=== PATIENT | female | born 1970 | race Caucasian/White ===

== ENCOUNTER 2023-05-02 07:48 | Emergency (ER) | payer MEDICAID ==
[~2023-05-02] VITALS: Ht 167.6 cm; Wt 97.5 kg
[2023-05-02 08:06] VITALS: TEMP 97.1
[2023-05-02 09:30] LABS: ALANINE AMINOTRANSFERASE 70 U/L (12-78); ALBUMIN 3.8 G/DL (3.4-5.0); ALBUMIN/GLOBULIN RATIO 1.1 (1.1-1.5); ALKALINE PHOSPHATASE 132 IU/L (46-116); ANION GAP 11 (8-16); ASPARTATE AMINO TRANSFERASE 66 U/L (10-37); BILIRUBIN,TOTAL 0.5 MG/DL (0.1-1.0); BLOOD UREA NITROGEN 11 MG/DL (7-18); BUN/CREATININE RATIO 16.7 (10.0-20.0); CHLORIDE 106 MMOL/L (99-107); CREATININE 0.66 MG/DL (0.40-0.90); GLUCOSE 111 MG/DL (70-104); SODIUM 142 MMOL/L (135-145); TOTAL CARBON DIOXIDE 25.5 MMOL/L (24-32); TOTAL PROTEIN 7.4 G/DL (6.4-8.2); eCRCL 92 ML/MIN; eGFR > 90 ML/MIN
[2023-05-02 09:38] LABS: BASOPHILS % (AUTO) 0.4 % (0-1); EOSINOPHILS # (AUTO) 0.3 X10'3 (0-0.9); EOSINOPHILS % (AUTO) 4.9 % (0-6); HEMATOCRIT 40.9 % (35.0-45.0); HEMOGLOBIN 13.7 g/dl (12.0-16.0); LYMPHOCYTES # (AUTO) 1.9 X10'3 (1.1-4.8); LYMPHOCYTES % (AUTO) 27.3 % (21-51); MEAN CORPUSCULAR HEMOGLOBIN 32.5 PG (27.0-31.0); MEAN CORPUSCULAR HGB CONC 33.6 g/dL (33.0-36.5); MEAN CORPUSCULAR VOLUME 96.7 FL (78-98); MEAN PLATELET VOLUME 8.1 FL (7.4-10.4); MONOCYTES # (AUTO) 0.4 X10'3 (0-0.9); MONOCYTES % (AUTO) 5.9 % (2-12); NEUTROPHILS # (AUTO) 4.4 X10'3 (1.8-7.7); NEUTROPHILS % (AUTO) 61.5 % (42-75); PLATELET COUNT 265 X10'3 (140-440); RED BLOOD COUNT 4.23 X10'6 (4.20-5.60); RED CELL DISTRIBUTION WIDTH 17.4 % (11.5-14.5); WHITE BLOOD COUNT 7.1 X10'3 (4.5-11.0)
[2023-05-02 10:37] VITALS: BP 151/97; PULSE 99; RESP 16; O2SAT 99
[2023-05-02] MEDS ORDERED: predniSONE 20 mg tablet PO ONE (10:50)
[2023-05-02] MEDS ORDERED: BENZ-38 PO (10:51)
[2023-05-02] MEDS ORDERED: METH4TAB81 PO (10:51)
== END 2023-05-02 11:35 | disposition home or self-care (01) ==
LOC: ER 07:49
DX: J40 Bronchitis, not specified as acute or chronic (principal); J04.0 Acute laryngitis
CPT/HCPCS: 36415; 71045; 80053; 85025; 99284; J7512

== ENCOUNTER 2023-07-19 09:48 | Emergency (ER) | payer MEDICAID ==
[~2023-07-19] VITALS: Ht 167.6 cm; Wt 95.9 kg
[~2023-07-19 09:48] MED LIST: METH4TAB81 PO
[2023-07-19] MEDS ORDERED: DIPH25CA83 PO (11:11)
[2023-07-19] MEDS ORDERED: FIOCOC PO (11:11)
[2023-07-19] MEDS ORDERED: METO5TAB98 PO (11:11)
[2023-07-19] MEDS: dexamethasone sod phosphate 10mg/ml inj IM STA (11:19)
[2023-07-19] MEDS: ketorolac trometh inj. 60 MG/2 ML VIAL IM ONE (11:20)
[2023-07-19 11:29] VITALS: BP 157/108; PULSE 116; RESP 17; TEMP 98.3; O2SAT 97
== END 2023-07-19 11:32 | disposition home or self-care (01) ==
LOC: ER 09:48
DX: G43.909 Migraine, unspecified, not intractable, without status migrainosus (principal); Z88.0 Allergy status to penicillin; Z79.899 Other long term (current) drug therapy
CPT/HCPCS: 96372; 99284; J1100; J1885

== ENCOUNTER 2023-08-01 19:37 | Emergency (ER) | payer MEDICAID ==
[~2023-08-01] VITALS: Ht 165.1 cm; Wt 90.9 kg
[~2023-08-01 19:37] MED LIST changes: +DIPH25CA83 PO; +FIOCOC PO; +METO5TAB98 PO
[2023-08-01 19:39] VITALS: BP 154/104; PULSE 122; TEMP 97.7; O2SAT 97
[2023-08-01] MEDS ORDERED: HYDR-3965 PO (20:39)
[2023-08-01] MEDS ORDERED: BENZ9GEL TOP (20:39)
[2023-08-01 20:53] VITALS: RESP 18
[2023-08-01] MEDS: HYDROcodone/acetaminophen 5mg/325mg tablet PO ONE (20:53)
== END 2023-08-01 20:56 | disposition home or self-care (01) ==
LOC: ER 19:38
DX: S02.5XXA Fracture of tooth (traumatic), initial encounter for closed fracture (principal); Z88.0 Allergy status to penicillin; Z79.899 Other long term (current) drug therapy; X58.XXXA Exposure to other specified factors, initial encounter; Y93.89 Activity, other specified; Y92.89 Other specified places as the place of occurrence of the external cause; Y99.8 Other external cause status
CPT/HCPCS: 99283

== ENCOUNTER 2023-11-09 05:10 | Inpatient (IN) | payer MEDICAID ==
[~2023-11-09] VITALS: Ht 167.6 cm; Wt 90.9 kg
[~2023-11-09 05:10] MED LIST changes: +BENZ9GEL TOP; -METO5TAB98 PO
[2023-11-09] MEDS: diphenhydrAMINE 50 mg/ml inj IV ONE (05:37)
[2023-11-09] MEDS: magnesium sulf-water 2g/50mL 50 ML IV ONE (05:37)
[2023-11-09] MEDS: normal saline 1000ml 1,000 ML IV ONE (05:37)
[2023-11-09 06:15] LABS: BASOPHILS # (AUTO) 0.1 X10'3 (0-0.2); BASOPHILS % (AUTO) 0.9 % (0-1); EOSINOPHILS # (AUTO) 0.3 X10'3 (0-0.9); EOSINOPHILS % (AUTO) 5.6 % (0-6); HEMATOCRIT 38.6 % (35.0-45.0); HEMOGLOBIN 12.9 g/dl (12.0-16.0); LYMPHOCYTES # (AUTO) 1.9 X10'3 (1.1-4.8); LYMPHOCYTES % (AUTO) 31.9 % (21-51); MEAN CORPUSCULAR HEMOGLOBIN 33.5 PG (27.0-31.0); MEAN CORPUSCULAR HGB CONC 33.5 g/dL (33.0-36.5); MEAN PLATELET VOLUME 7.6 FL (7.4-10.4); MONOCYTES # (AUTO) 0.4 X10'3 (0-0.9); MONOCYTES % (AUTO) 6.3 % (2-12); NEUTROPHILS # (AUTO) 3.2 X10'3 (1.8-7.7); NEUTROPHILS % (AUTO) 55.3 % (42-75); PLATELET COUNT 240 X10'3 (140-440); RED BLOOD COUNT 3.86 X10'6 (4.20-5.60); RED CELL DISTRIBUTION WIDTH 13.7 % (11.5-14.5); WHITE BLOOD COUNT 5.9 X10'3 (4.5-11.0)
[2023-11-09 06:16] LABS: BILIRUBIN,URINE NEGATIVE (Neg); CLARITY,URINE SLIGHTLY CLOUDY (Clear); COLOR,URINE YELLOW (Yellow); GLUCOSE, URINE NEGATIVE (Neg); KETONES,URINE NEGATIVE (Neg); LEUKOCYTE ESTERASE ,URINE NEGATIVE (Neg); NITRITES, URINE NEGATIVE (Neg); OCCULT BLOOD,URINE NEGATIVE (Neg); PH,URINE 6.5 (4.8-8.0); PROTEIN,URINE NEGATIVE (Neg); UROBILINOGEN,URINE 0.2 E.U/dL (0.2-1.0)
[2023-11-09 06:17] LABS: URINE HCG NEGATIVE (NEG)
[2023-11-09 06:21] LABS: UA COLLECTION TYPE URINAL
[2023-11-09 06:22] LABS: AMORPHOUS URATES 2+; BACTERIA,URINE FEW /HPF (Neg); MUCUS STRANDS FEW /LPF (Neg); RBC,URINE NONE SEEN /HPF (0-2); SQUAMOUS EPITHELIAL CELL,UR MANY /LPF (FEW); WBC,URINE 0-4 /HPF (0-4)
[2023-11-09 06:26] LABS: ALANINE AMINOTRANSFERASE 61 U/L (12-78); ALBUMIN 2.9 G/DL (3.4-5.0); ALBUMIN/GLOBULIN RATIO 0.8 (1.1-1.5); ALKALINE PHOSPHATASE 102 IU/L (46-116); ANION GAP 13 (8-16); ASPARTATE AMINO TRANSFERASE 62 U/L (10-37); BILIRUBIN,TOTAL 0.3 MG/DL (0.1-1.0); BLOOD UREA NITROGEN 7 MG/DL (7-18); BUN/CREATININE RATIO 9.1 (10.0-20.0); CHLORIDE 108 MMOL/L (99-107); CREATININE 0.77 MG/DL (0.40-0.90); GLUCOSE 116 MG/DL (70-104); SODIUM 144 MMOL/L (135-145); TOTAL CARBON DIOXIDE 23.5 MMOL/L (24-32); TOTAL PROTEIN 6.7 G/DL (6.4-8.2); eCRCL 79 ML/MIN; eGFR 78 ML/MIN
[2023-11-09 06:36] LABS: ETHANOL < 10 MG/DL (<10); FREE T4 (FREE THYROXINE) 0.81 NG/DL (0.73-1.40); MAGNESIUM 1.7 MG/DL (1.5-2.4); THYROID STIMULATING HORMONE 9.51 ulU/ml (0.34-4.50)
[2023-11-09 06:46] LABS: POTASSIUM 3.6 MMOL/L (3.5-5.1)
[2023-11-09 06:46] LABS: URINE AMPHETAMINE SCREEN NEGATIVE (Neg); URINE BARBITUATE SCREEN NEGATIVE (Neg); URINE BENZODIAZEPINES SCREEN NEGATIVE (Neg); URINE CANNABINOID SCREEN NEGATIVE (Neg); URINE COCAINE SCREEN NEGATIVE (Neg); URINE METHADONE SCREEN NEGATIVE (Neg); URINE OPIATE SCREEN NEGATIVE (Neg); URINE PHENCYCLIDINE SCREEN NEGATIVE (Neg)
[2023-11-09] MEDS: LORazepam 2 mg/ml vial IV ONE (09:06)
[2023-11-09] MEDS: metoclopramide 10mg tablet PO ONE (12:01)
[2023-11-09] MEDS: mag hydrox/Alum hydrox/simeth 30ml oral suspension PO ONE (12:01)
[2023-11-09] MEDS: famotidine 20mg tablet PO ONE (12:01)
[2023-11-09] MEDS: diphenhydrAMINE 25mg capsule PO ONE (12:01)
[2023-11-09] MEDS ORDERED: magnesium sulf-water 2g/50mL 50 ML IV PRN (13:10)
[2023-11-09] MEDS ORDERED: ondansetron 4mg rapidly disintigrating tab PO PRN (13:10)
[2023-11-09] MEDS ORDERED: magnesium sulf-water 4G/100mL 100 ML IV PRN (13:10)
[2023-11-09] MEDS ORDERED: acetaminophen 325mg tablet PO PRN (13:10)
[2023-11-09] MEDS ORDERED: LORazepam 1 MG tablet PO PRN (13:10)
[2023-11-09] MEDS ORDERED: magnesium hydroxide 30ml (MOM) UD suspension PO PRN (13:10)
[2023-11-09] MEDS ORDERED: potassium Cl 20 mEq SR tablet PO PRN ×2 (13:10)
[2023-11-09] MEDS ORDERED: potassium Cl 40MEQ/1/2NS 520ml 520 ML IV PRN (13:10)
[2023-11-09] MEDS ORDERED: mag hydrox/Alum hydrox/simeth 30ml oral suspension PO PRN (13:10)
[2023-11-09] MEDS ORDERED: magnesium Cl slow-release 64mg tablet PO PRN (13:10)
[2023-11-09] MEDS ORDERED: CYCL-1 PO (13:58)
[2023-11-09] MEDS ORDERED: CLIN300C71 PO (13:58)
[2023-11-09] MEDS ORDERED: DULO60CA65 PO (13:58)
[2023-11-09] MEDS ORDERED: AMIT50TA15 PO (13:58)
[2023-11-09] MEDS ORDERED: IBUP-1985 PO (13:58)
[2023-11-09] MEDS ORDERED: ERGO500093 PO (13:58)
[2023-11-09] MEDS ORDERED: SEMA0.258 SQ (13:58)
[2023-11-09] MEDS: LORazepam 1 MG tablet PO ONE (14:05)
[2023-11-09 17:01] VITALS: BP 159/100; PULSE 110; RESP 20; TEMP 97.3; O2SAT 96
[2023-11-09] MEDS: normal saline 1000ml 1,000 ML IV SCH (17:34)
[2023-11-09 18:00] VITALS: BP 150/89; PULSE 110; RESP 20; TEMP 97.6; O2SAT 96
[2023-11-09] MEDS ORDERED: glucagon, human recombinant 1mg kit SUBCUT PRN (18:05)
[2023-11-09] MEDS ORDERED: dextrose 50%-water 50ml dispensing syringe IV PRN ×2 (18:05)
[2023-11-09] MEDS ORDERED: LORazepam 2 mg/ml vial IV PRN ×2 (18:05→18:20)
[2023-11-09] MEDS ORDERED: DEXTROSE 15 GM of carb/4 tabs (each vial/BOTTLE has 4 tablets) PO PRN ×2 (18:05)
[2023-11-09 18:48] LABS: HEMOGLOBIN A1C 6.1 % (4.5-6.2)
[2023-11-09] MEDS: K and/or MAG REPLACEMENT MC SCH (19:05)
[2023-11-09 20:00] VITALS: RESP 16; O2SAT 98
[2023-11-09] MEDS: docusate sod 100mg capsule PO SCH (20:43)
[2023-11-09] MEDS: acetaminophen 325mg tablet PO PRN (20:43)
[2023-11-09] MEDS: LORazepam 1 MG tablet PO PRN (20:43)
[2023-11-09] MEDS: heparin, porcine 5000 units/ml vial SQ SCH (20:44)
[2023-11-09] MEDS: INSULIN LISPRO 100 UNIT/ML INSULN.PEN MULTI-DOSE SQ SCH (20:54)
[2023-11-09 22:31] VITALS: BP 164/99; PULSE 100; RESP 16; TEMP 98.1; O2SAT 95
[2023-11-10] VITALS (8 sets, daily range): BP systolic 149–166; BP diastolic 100–117; PULSE 101–117; RESP 14–22; TEMP 97.7–98.9; O2SAT 93–100
[2023-11-10 04:24] LABS: BASOPHILS % (AUTO) 0.7 % (0-1); EOSINOPHILS # (AUTO) 0.3 X10'3 (0-0.9); EOSINOPHILS % (AUTO) 5.3 % (0-6); HEMATOCRIT 36.5 % (35.0-45.0); HEMOGLOBIN 12.2 g/dl (12.0-16.0); MEAN CORPUSCULAR HEMOGLOBIN 33.5 PG (27.0-31.0); MEAN CORPUSCULAR HGB CONC 33.3 g/dL (33.0-36.5); MEAN CORPUSCULAR VOLUME 100.6 FL (78-98); MEAN PLATELET VOLUME 7.8 FL (7.4-10.4); MONOCYTES # (AUTO) 0.4 X10'3 (0-0.9); MONOCYTES % (AUTO) 6.9 % (2-12); NEUTROPHILS # (AUTO) 3.7 X10'3 (1.8-7.7); NEUTROPHILS % (AUTO) 57.1 % (42-75); PLATELET COUNT 193 X10'3 (140-440); RED BLOOD COUNT 3.63 X10'6 (4.20-5.60); WHITE BLOOD COUNT 6.5 X10'3 (4.5-11.0)
[2023-11-10] MEDS: thiamine 100mg tablet PO SCH (08:02)
[2023-11-10] MEDS: folic acid 1mg tablet PO SCH (08:02)
[2023-11-10] MEDS: losartan 50mg tablet PO SCH (08:02)
[2023-11-10] MEDS: levoTHYROXINE 25mcg tablet PO SCH (08:02)
[2023-11-10] MEDS: cloNIDine 0.1 mg tablet PO SCH (12:28)
[2023-11-10] MEDS: acetaminophen 325mg tablet PO PRN (14:49)
[2023-11-11] MEDS: Melatonin 3mg tablet PO SCH (01:10)
[2023-11-11 06:00] VITALS: BP 157/101; PULSE 102; RESP 14; TEMP 97.7; O2SAT 97
[2023-11-11 06:35] LABS: BASOPHILS % (AUTO) 0.4 % (0-1); EOSINOPHILS # (AUTO) 0.3 X10'3 (0-0.9); EOSINOPHILS % (AUTO) 5.1 % (0-6); HEMATOCRIT 39.4 % (35.0-45.0); HEMOGLOBIN 13.4 g/dl (12.0-16.0); LYMPHOCYTES # (AUTO) 2.1 X10'3 (1.1-4.8); LYMPHOCYTES % (AUTO) 30.8 % (21-51); MEAN CORPUSCULAR HEMOGLOBIN 34.2 PG (27.0-31.0); MEAN CORPUSCULAR HGB CONC 34.1 g/dL (33.0-36.5); MEAN CORPUSCULAR VOLUME 100.3 FL (78-98); MEAN PLATELET VOLUME 8.9 FL (7.4-10.4); MONOCYTES # (AUTO) 0.4 X10'3 (0-0.9); MONOCYTES % (AUTO) 5.4 % (2-12); NEUTROPHILS # (AUTO) 3.9 X10'3 (1.8-7.7); NEUTROPHILS % (AUTO) 58.3 % (42-75); PLATELET COUNT 188 X10'3 (140-440); RED BLOOD COUNT 3.93 X10'6 (4.20-5.60); RED CELL DISTRIBUTION WIDTH 13.9 % (11.5-14.5); WHITE BLOOD COUNT 6.8 X10'3 (4.5-11.0)
[2023-11-11] MEDS: pantoprazole 40mg Tablet.DR PO SCH (07:23)
[2023-11-11 08:04] VITALS: RESP 14; O2SAT 97
[2023-11-11 10:00] VITALS: BP 152/97; PULSE 91; RESP 20; TEMP 97; O2SAT 95
[2023-11-11] MEDS ORDERED: diazepam inj 5 MG/ML inj. IV PRN (10:45)
[2023-11-11] MEDS: nicotine 7mg patch - 24hr TD SCH (15:04)
[2023-11-11 18:00] VITALS: BP 154/105; PULSE 97; RESP 16; TEMP 97.5; O2SAT 94
[2023-11-11 20:00] VITALS: RESP 16; O2SAT 94
[2023-11-11] MEDS ORDERED: Melatonin 3mg tablet PO SCH (21:00)
[2023-11-11 22:00] VITALS: BP 151/101; PULSE 95; RESP 18; TEMP 98.2; O2SAT 94
[2023-11-12 05:41] LABS: BASOPHILS % (AUTO) 0.4 % (0-1); EOSINOPHILS # (AUTO) 0.4 X10'3 (0-0.9); EOSINOPHILS % (AUTO) 5.8 % (0-6); HEMATOCRIT 37.6 % (35.0-45.0); HEMOGLOBIN 12.4 g/dl (12.0-16.0); LYMPHOCYTES # (AUTO) 1.6 X10'3 (1.1-4.8); LYMPHOCYTES % (AUTO) 23.2 % (21-51); MEAN CORPUSCULAR HEMOGLOBIN 33.1 PG (27.0-31.0); MEAN CORPUSCULAR VOLUME 100.3 FL (78-98); MEAN PLATELET VOLUME 8.5 FL (7.4-10.4); MONOCYTES # (AUTO) 0.4 X10'3 (0-0.9); MONOCYTES % (AUTO) 5.3 % (2-12); NEUTROPHILS # (AUTO) 4.6 X10'3 (1.8-7.7); NEUTROPHILS % (AUTO) 65.3 % (42-75); PLATELET COUNT 186 X10'3 (140-440); RED BLOOD COUNT 3.75 X10'6 (4.20-5.60); WHITE BLOOD COUNT 7.1 X10'3 (4.5-11.0)
[2023-11-12 06:00] VITALS: BP 160/100; PULSE 94; RESP 22; TEMP 98; O2SAT 92
[2023-11-12] MEDS ORDERED: nicotine 7mg patch - 24hr TD SCH (08:00)
[2023-11-12 10:00] VITALS: BP 162/102; PULSE 95; RESP 21; TEMP 97.6; O2SAT 91
[2023-11-12] MEDS ORDERED: LORA-269 PO (11:56)
[2023-11-12] MEDS ORDERED: LEVO25TA7 PO (13:04)
== END 2023-11-12 14:59 | disposition home or self-care (01) | DRG 58 ==
LOC: ER 05:11 → ED HOLD 13:24 → SUR 3N 17:00
PROVIDERS: ADMIT Internal Medicine; ATTEND Internal Medicine
DX: G25.2 Other specified forms of tremor (principal); F10.139 Alcohol abuse with withdrawal, unspecified; E03.9 Hypothyroidism, unspecified; E11.9 Type 2 diabetes mellitus without complications; F17.210 Nicotine dependence, cigarettes, uncomplicated; I10 Essential (primary) hypertension; Y90.9 Presence of alcohol in blood, level not specified; Z88.0 Allergy status to penicillin; Z90.710 Acquired absence of both cervix and uterus
CPT/HCPCS: 36415; 70450; 80053; 80305; 80320; 81001; 81025; 82948; 83036; 83735; 84132; 84439; 84443; 85025; 87081; 96365; 96375; 99285; G0378; J1200; J1644; J1815; J2060; J7030; Q0163

== ENCOUNTER 2023-12-25 10:10 | Outpatient (CLI) | payer MEDICAID ==
[~2023-12-25 10:10] MED LIST changes: +AMIT50TA15 PO; -BENZ9GEL TOP; +CLIN300C71 PO; +CYCL-1 PO; -DIPH25CA83 PO; +DULO60CA65 PO; +ERGO500093 PO; -FIOCOC PO; +LEVO25TA7 PO; +LORA-269 PO; -METH4TAB81 PO; +SEMA0.258 SQ
== END 2023-12-25 23:59 | disposition home or self-care (01) ==
LOC: RAD 10:10
PROVIDERS: ATTEND Pediatrics Sports Medicine
DX: S42.102A Fracture of unspecified part of scapula, left shoulder, initial encounter for closed fracture (principal); M19.012 Primary osteoarthritis, left shoulder; M25.512 Pain in left shoulder; X58.XXXA Exposure to other specified factors, initial encounter; Y93.89 Activity, other specified; Y92.89 Other specified places as the place of occurrence of the external cause; Y99.8 Other external cause status
CPT/HCPCS: 73200

== ENCOUNTER 2024-04-10 15:07 | Emergency (ER) | payer MEDICAID ==
[~2024-04-10] VITALS: Ht 167.6 cm; Wt 97.7 kg
[2024-04-10 16:33] VITALS: TEMP 97.6
[2024-04-10] MEDS ORDERED: CEPH-585 PO (17:12)
[2024-04-10] MEDS: fluconazole 100mg tablet PO ONE (17:29)
[2024-04-10] MEDS: NYSTATIN CREAM - 30GM TUBE TP ONE (17:30)
[2024-04-10 17:32] VITALS: BP 121/83; PULSE 104; RESP 16; O2SAT 98
== END 2024-04-10 17:36 | disposition home or self-care (01) ==
LOC: ER 15:07
DX: N61.0 Mastitis without abscess (principal); F17.210 Nicotine dependence, cigarettes, uncomplicated; Z88.0 Allergy status to penicillin; Z79.899 Other long term (current) drug therapy
CPT/HCPCS: 99283

== ENCOUNTER 2024-11-12 18:33 | Inpatient (IN) | payer MEDICAID ==
[~2024-11-12] VITALS: Ht 167.6 cm; Wt 96.0 kg
--- NOTE | 2024-11-12 18:40 | ELECTROCARDIOGRAPH REPORT ---
[facility] Test Date: 2024-11-12 Test Time: 18:38:24 Pat Name: RHONDA CHURCHILL Department: EMERGENCY ROOM Room: Gender: F Tick Sewer: CELINE : 1970 Requested By: NORMA GARIBAY Order Number: [id number] Reading MD: Measurements Intervals [place] Rate: 113 P: 6 ID: [id number] QRS: -14 QRSD: 86 T: 34 QT: 336 QTc: 461 Interpretive Statements Sinus tachycardia Abnormal R-wave progression, late transition Please click the below link to view image of tracing.
--- NOTE | 2024-11-12 18:50 | Physician Documentation ---
History of Present Illness ~ Chief Complaint: Syncope Stated Complaint: FALL Time Seen by MD: 18:48 Primary Medical Doctor: NO PMD HPI Patient presents to the emergency room for evaluation of syncopal episode. 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 Patient states she felt slightly dizzy earlier after picking up a delivery from [employer] however when she got into the drive way to deliver the food she suddenly syncopized striking her head and cutting herself. Complaint of lower back pain cervical pain and head pain. Denies any chest pain or palpitations. Medication Reconciliation Allergies: Coded Allergies: Penicillins (Verified Allergy, Unknown, 08/01/23) Scheduled Amitriptyline HCl (Amitriptyline HCl), 1 TAB PO HS, (Reported) Amitriptyline Hcl* (Elavil*), 1 TAB PO HS, (Reported) Clindamycin HCl (Clindamycin HCl), 1 CAP PO Q8H, (Reported) Duloxetine HCl (Duloxetine HCl), 1 CAP PO HS, (Reported) Ergocalciferol (Vitamin D2) (Vitamin D2), 1 CAP PO Q7D, (Reported) Levothyroxine Sodium (Levothyroxine Sodium), 50 MCG PO DAILY@07 Semaglutide (Ozempic), 0.25 MG SQ Q7D, (Reported) Semaglutide (Wegovy), 1 MG SQ Q7D, (Reported) Scheduled PRN Cyclobenzaprine* (Cyclobenzaprine*), 1 TAB PO TID PRN for muscle spasms, (Reported) Docusate Sodium (Docusate Sodium), 1 CAP PO TID PRN for constipation, (Reported) Ibuprofen (Ibuprofen), 1 TAB PO TID PRN for pain, (Reported) Lorazepam (Ativan), 1 TAB PO Q12H PRN PRN for anxiety Past Medical History Past Medical History: Bronchitis Past Surgical History: no surgical history Lives In: Home Past Social History: Smokes 3 cigarettes a day on an average; drinks 1 month of vodka with juice Review of Systems ROS All review of systems negative except as per HPI Physical Exam Vital Signs: Temperature: 98.4, Source: Oral, Heart Rate: 109, Respiratory Rate : 16, BP: 119/85, Pulse Oximetry: 98, Weight: 96.000 Oxygen Flow Rate: 0 Physical Exam General: Patient is awake, alert, oriented x4 in no acute distress Head: Normocephalic with bandage clean dry intact over head. Laceration near the midline on the right measuring 8 cm in length, full-thickness, no active bleeding. Eyes: Conjunctival normal. EOMI. PERRL. ENT: Mucous membranes moist. Neck: Supple, trachea is midline. Positive cervical midline tenderness Chest: Clear to auscultation bilaterally without rales, rhonchi, or wheezes. There is no accessory muscle use or retractions. Cardiac: RRR without murmurs, gallops, or rubs. Abd: Soft, nondistended, nontender, with normoactive bowel sounds. No guarding, rebound, or rigidity. Extremities: Normal strength. Normal range of motion. No deformities or edema. Back: Tenderness to palpation to lower lumbar spine. No step-offs Progress Results/Orders Results/Orders Orders - DANIELITO ORTEGA MD Chest,Single View (11/12/24 18:53) Monitor (11/12/24 18:35) Saline Lock (11/12/24 18:35) Oxygen (11/12/24 18:35) Hs Troponin I W Calculations (11/12/24 21:35) Ct Head (11/12/24 19:00) Ct Cervical Spine (11/12/24 19:00) Ct Lumbar Spine (11/12/24 19:00) Page Hospitalist (11/12/24 20:40) Fill Out Med Reconciliation (11/12/24 20:40) Completed Orders - DANIELITO ORTEGA MD Chest,Single View (11/12/24 18:53) Cbc/Diff (11/12/24 18:35) BMP (11/12/24 18:35) PBNP (11/12/24 18:35) Electrocardiogram (11/12/24 18:35) Hs Troponin I W Calculations (11/12/24 18:35) Hs Troponin I W Calculations (11/12/24 20:35) Ct Head (11/12/24 19:00) Ct Cervical Spine (11/12/24 19:00) Normal Saline 1000ml (0.9% Sodium Chlori (11/12/24 18:55) Ondansetron Inj. (Zofran 4mg/2ml Vial) (11/12/24 19:00) Fentanyl/Pf (Fentanyl 0.05 Mg/Ml Syringe (11/12/24 19:00) Ct Lumbar Spine (11/12/24 19:00) Hydrocodone/Apap 10/325 ([place] 10/325mg (11/12/24 21:40) Medications Received in ER Medications (Trade) Dose Ordered Sig/Susana Route PRN Reason Start Time Stop Time Status Last Admin Dose Admin Sodium Chloride 1,000 ml @ 1,000 mls/hr ONCE ONCE IV 11/12/24 18:55 11/12/24 19:54 DC 11/12/24 19:25 1,000 MLS/HR (Zofran 4mg/2ml vial) 4 mg ONCE ONCE IV 11/12/24 19:00 11/12/24 19:02 DC 11/12/24 19:25 4 MG (fentaNYL 0.05 MG/ML syringe) 50 mcg ONCE ONCE IV 11/12/24 19:00 11/12/24 19:02 DC 11/12/24 19:26 50 MCG Vital Signs 11/12/24 11/12/24 11/12/24 11/12/24 18:44 19:26 19:28 19:28 Temp 98.4 Pulse 109 104 Resp 16 16 16 18 B/P (MAP) 119/85 118/85 (96) Pulse Ox 98 98 O2 Flow Rate 0 0 11/12/24 11/12/24 11/12/24 19:36 20:00 21:00 Pulse 101 Resp 13 B/P (MAP) 111/78 (89) Pulse Ox 98 98 98 O2 Delivery Nasal Cannula* O2 Flow Rate 2.0 2 FiO2 28 Laboratory Tests Test 11/12/24 18:47 11/12/24 20:44 11/12/24 21:36 White Blood Count 11.5 H Red Blood Count 4.20 Hemoglobin 14.9 Hematocrit 43.4 Mean Corpuscular Volume 103.5 H Mean Corpuscular Hemoglobin 35.6 H Mean Corpuscular Hemoglobin Concent 34.4 Red Cell Distribution Width 18.5 H Platelet Count 308 Mean Platelet Volume 7.7 Neutrophils (%) (Auto) 67.4 Lymphocytes (%) (Auto) 21.6 Monocytes (%) (Auto) 6.2 Eosinophils (%) (Auto) 4.5 Basophils (%) (Auto) 0.3 Neutrophils # (Auto) 7.7 Lymphocytes # (Auto) 2.5 Monocytes # (Auto) 0.7 Eosinophils # (Auto) 0.5 Basophils # (Auto) 0.0 CBC Comment Sodium Level 139 Potassium Level 3.7 Chloride Level 106 Carbon Dioxide Level 23.6 L Anion Gap 9 Blood Urea Nitrogen 6 L Creatinine 0.79 Estimated GFR/1.73 m2 76 BUN/Creatinine Ratio 7.6 L Glucose Level 108 H Glucometer 112 H Calcium Level 8.6 Troponin I High Sensitivity 4 4 Pro-B-Type Natriuretic Peptide 30 Albumin 3.1 L Chemistry Comments Troponin I High Sens Percent Delta 0 Troponin I Hi Sens Absolute Change 0 EKG/XRAY/CT/US/VASC/MRI EKG : Additional Comment EKG interpreted by myself shows time of 1838, rate 113, sinus tachycardia, left axis deviation, no ST changes Medical Decision Making Findings Patient presented to the emergency room after syncopal episode. Differentials include but are not limited to ACS, dehydration, vasovagal, cardiogenic syncope, intracranial bleed therefore emergent labs in CT scans indicated. Imaging is reassuring. Of concern is patient's nature of passing out and that has concern for possible cardiogenic syncope therefore we will admit for further investigation. Possible compression fracture Departure Admitted to Inpatient Unit: yes, to hospitalist Impression: Primary Impression: Syncope Condition: Fair Referrals: NO PRIMARY CARE PROVIDER (PCP) Signature Scribe Signature: No scribe Attestation: The note accurately reflects work and decisions made by me.Danielito Ortega MD 11/12/24 20:39 DANIELITO ORTEGA MD Nov 12, 2024 18:50
[2024-11-12 18:58] LABS: MEAN PLATELET VOLUME 7.7 FL (7.4-10.4); RED CELL DISTRIBUTION WIDTH 18.5 % (11.5-14.5)
[2024-11-12 19:21] LABS: CREATININE 0.79 MG/DL (0.40-0.90); PRO BRAIN NATRIURETIC PEPTIDE 30 PG/ML (0-125); TOTAL CARBON DIOXIDE 23.6 MMOL/L (24-32); eCRCL 76 ML/MIN; eGFR 76 ML/MIN
--- NOTE | 2024-11-12 19:22 | RADIOLOGY REPORT ---
Procedure: DI CHEST,SINGLE VIEW 11/12/2024 06:50 PM Indication: CP Comparison: DI CHEST,SINGLE VIEW on DOS: 05/02/23 TECHNIQUE: DI CHEST,SINGLE VIEW FINDINGS: Medical devices: None. Cardiomediastinal: The heart is normal in size. . mild pulmonary vascular congestion. Lungs: No focal pulmonary opacity is seen. bibasilar subsegmental atelectasis. The costophrenic angle s are clear. No pneumothorax. Bones/soft tissues: No acute abnormality is noted. IMPRESSION: 1. No acute cardiopulmonary disease. mild pulmonary vascular congestion.
[2024-11-12] MEDS: normal saline 1000ml 1,000 ML IV ONE (19:25)
[2024-11-12] MEDS: ondansetron/PF 4mg/2ml inj IV ONE (19:25)
[2024-11-12] MEDS: fentaNYL/PF 50MCG/1 ML 2ML syringe IV ONE (19:26)
--- NOTE | 2024-11-12 19:41 | RADIOLOGY REPORT ---
EXAM: CT CT HEAD INDICATION: fall, head injury TECHNIQUE: CT of the head without intravenous contrast. Radiation Dose Information: CT Dose: CTDI volume is 54.56 mGy. Dose-length product is 957.07 mGy*cm The dose indicators for CT are the volume Computed Tomography (CT) Dose Index (CTDIvol) and the Dose Length Product (DLP), and are measured in units of mGy and mGy-cm, respectively. These indicators are not patient dose, but values generated from the CT scanner acquisition factors. The report includes radiation exposure data for exposures received during this examination. COMPARISON: CT CT HEAD on DOS: 11/09/23 FINDINGS: Evaluation is degraded by streak artifact. The cerebral parenchyma appears to be normal configuration and attenuation. The ventricles, cisterns , and sulci appear age-appropriate. There is no evidence for acute territorial infarct, hemorrhage, or mass effect. The orbits are normal. The visualized paranasal sinuses and mastoid air cells are clear. The soft t issues and osseous structures appear within normal limits. IMPRESSION: 1. No acute territorial infarct, intracranial hemorrhage, or mass effect. If clinical symptoms persis t, MRI may be beneficial in further evaluation.
--- NOTE | 2024-11-12 19:50 | RADIOLOGY REPORT ---
EXAM: CT CT LUMBAR SPINE INDICATION: fall, back pain COMPARISON: None TECHNIQUE: Multiple axial CT images of the lumbar spine were obtained using bone algorithm. Axial an d coronal reformatting was done. Bone and soft tissue windows were reviewed. Radiation Dose Information: CT Dose: CTDI volume is 34.79 mGy. Dose-length product is 943.89 mGy*cm FINDINGS: There is age-indeterminate minimal cortical irregularity about the superior endplate of L1. The verte bral body heights are otherwise well-maintained. There are minimal endplate degenerative changes. The re is mild endplate osteophytosis. There is minimal loss of intervertebral disc height. Multilevel d isc bulges efface the thecal sac. There is multilevel facet arthropathy, most pronounced within the l ower lumbar spine. There is incompletely assessed infiltration of the posterior subcutaneous tissues at the midline. IMPRESSION: 1. Age-indeterminate minimal cortical irregularity about the superior endplate of LComparison with an y prior outside imaging would be helpful in assessing acuity and interval change. 2. Incompletely assessed infiltration of the posterior subcutaneous tissues at the midline, possibly reflecting contusion in the appropriate clinical setting. 3. Minimal degenerative changes in the lumbar spine as detailed. Radiation optimization: All CT scans at this facility use at least one of these dose optimization nhung hniques: automated exposure control mA and/or kV adjustment per patient size (includes targeted exam s where dose is matched to clinical indication) or iterative reconstruction.
--- NOTE | 2024-11-12 20:29 | RADIOLOGY REPORT ---
EXAM: CT CT CERVICAL SPINE INDICATION: fall, neck pain EXAM DATE: 11/12/2024 07:05 PM COMPARISON: None TECHNIQUE: Multiple axial CT images of the cervical spine were obtained using bone algorithm. Axial a nd coronal reformatting was done. Bone and soft tissue windows were reviewed. Radiation Dose Information: CT Dose: CTDI volume is 24.4 mGy. Dose-length product is 580.37 mGy*cm FINDINGS: No acute displaced fracture is seen. There is reversal of the cervical lordosis. There is grade 1 an terolisthesis of C3 on C4. There are degenerative changes of the cervical spine characterized by end plate osteophytosis and intervertebral disc space narrowing. Degenerative uncovertebral and facet hyp ertrophy contribute to mild multilevel neural foraminal narrowing. The paraspinal soft tissues are un remarkable. IMPRESSION: 1. No acute displaced fracture. 2. Degenerative changes of the cervical spine as detailed. 3. All CT scans at this medical facility are performed using dose modulation techniques as appropriat e to a performed exam including the following: Automated exposure control was utilized; adjustment of the MA and/or KV according to patient size; and use of iterative reconstruction technique.
[2024-11-12] MEDS ORDERED: SEMA1PEN5 SQ (21:37)
[2024-11-12] MEDS ORDERED: AMIT100T76 PO (21:37)
[2024-11-12] MEDS ORDERED: DOCU-391 PO (21:37)
[2024-11-12] MEDS ORDERED: IBUP-1986 PO (21:37)
[2024-11-12] MEDS: HYDROcodone/acetaminophen 10/325mg tab PO ONE (22:13)
[2024-11-12] MEDS ORDERED: potassium Cl 20 mEq SR tablet PO PRN ×2 (23:20)
[2024-11-12] MEDS ORDERED: potassium Cl 40MEQ/1/2NS 520ml 520 ML IV PRN (23:20)
[2024-11-12] MEDS ORDERED: magnesium sulf-water 2g/50mL 50 ML IV PRN (23:20)
[2024-11-12] MEDS ORDERED: ondansetron/PF 4mg/2ml inj IV PRN (23:20)
[2024-11-12] MEDS ORDERED: magnesium Cl slow-release 64mg tablet PO PRN (23:20)
[2024-11-12] MEDS ORDERED: albuterol 2.5 MG/3 ML nebule NEB PRN (23:20)
[2024-11-12] MEDS ORDERED: magnesium sulf-water 4G/100mL 100 ML IV PRN (23:20)
[2024-11-12] MEDS ORDERED: mag hydrox/Alum hydrox/simeth 30ml oral suspension PO PRN (23:20)
[2024-11-12] MEDS: ipratropium/albuterol 3ml nebule NEB SCH (23:51)
[2024-11-12 23:54] VITALS: PULSE 98; RESP 16; O2SAT 96
[2024-11-13] VITALS (15 sets, daily range): BP systolic 112–148; BP diastolic 80–98; PULSE 70–106; RESP 12–18; TEMP 97–97.6; O2SAT 92–97
[2024-11-13] MEDS: normal saline 1000ml 1,000 ML IV SCH (00:06)
--- NOTE | 2024-11-13 00:25 | HISTORY AND PHYSICAL-Residence ---
History & Physical Providers to CC Resident Creating Document: GENI CALIX RES ~ History of Present Illness Primary Medical Doctor: NO PMD Reason for Admit\Complaint: Syncope History of Present Illness 54-year-old female with history of diabetes, fibromyalgia presented to the ED after having a syncopal episode earlier today. She works as a food manager labor delivery. She was dropping groceries and started feeling dizzy. She was feeling dizzy, shaky and weird on and off for the past 3-4 months. But she has never had an episode of syncope in the past. She did follow up with her primary care Geni Wilkerson and her workup was unremarkable. This morning before passing out she felt dizzy, no other symptoms associated. Denies significant chest pains, diaphoresis, fevers/chills, nasal congestion, expectoration, palpitations, or weight loss/weight gain. Smokes two cigarettes a day, has not had alcohol in the past 10 days. Drinks whiskey less than three drinks/ 2 weeks. Denies recreational drug use. Lives with her boyfriend. Of note: She lost her son 7 months ago. Discussed advanced care directives and she wishes to be a full code. Allergies: Coded Allergies: Penicillins (Verified Allergy, Unknown, 08/01/23) Home Medications Home Medications Active Levothyroxine Sodium 25 Mcg Tablet 50 Mcg PO DAILY@07 30 Days Ativan (Lorazepam) 1 Mg Tablet 1 Tab PO Q12H PRN PRN Reported Wegovy (Semaglutide) 1 Mg/0.5 Ml Pen.injctr 1 Mg SQ Q7D Amitriptyline HCl 100 Mg Tablet 1 Tab PO HS Ibuprofen 800 Mg Tablet 1 Tab PO TID PRN Docusate Sodium 100 Mg Capsule 1 Cap PO TID PRN Duloxetine HCl 60 Mg Capsule.dr 1 Cap PO HS Cyclobenzaprine* (Cyclobenzaprine HCl) 10 Mg Tablet 1 Tab PO TID PRN Vitamin D2 (Ergocalciferol (Vitamin D2)) 1,250 Mcg (14304 Unit) Capsule 1 Cap PO Q7D pt stated she takes every Monday, last taken 11/06 Elavil* (Amitriptyline HCl) 50 Mg Tablet 1 Tab PO HS Ozempic (Semaglutide) 0.25 Mg/0.368 Ml Pen.injctr 0.25 Mg SQ Q7D pt stated she last took 11/06 Clindamycin HCl 300 Mg Capsule 1 Cap PO Q8H pt started on Monday 11/06 for tooth infection Past Medical History Past Medical History Fibromyalgia Diabetes mellitus Past Surgical History Surgical History Comment Hysterectomy Hand and shoulder surgery Past Social History Lives In: Home Past Social History: Smokes 3 cigarettes a day on an average; drinks 1 month of vodka with juice ROS ROS Reviewed in full. All negative except for pertinent positive HPI. Exam Vitals: Vital Signs Date Time Temp Pulse Resp B/P (MAP) Pulse Ox O2 Delivery O2 Flow Rate FiO2 11/13/24 00:01 99 16 Nasal Cannula 2.0 11/12/24 23:54 96 21 11/12/24 21:00 111/78 (89) 11/12/24 18:44 98.4 General: General: Awake and Alert, no acute distress. On 2 L oxygen nasal cannula. HEENT: Approximately 8 cm laceration on the frontal side with sameer intact, no active bleeding noted. Conjunctiva pink, Sclera clear, Mucus Membranes moist. Neck: Cervical tenderness present, no masses noted.. Resp: Unlabored. Equal breath sounds bilaterally. Heart: Regular rhythm, normal S1 and S2, no rub, murmur or gallop. Abdomen: Soft and non tender no organomegaly. Normal bowel sounds x4 quadrant normoactive. No guarding or rigidity. Extremities: Back pain and tenderness. Normal ROM, no swelling, nontender. No cyanosis,clubbing or edema. 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 Diagnostic Data Last Recorded Lab Results: 11/12/24184611/12/241846 Advance Care Planning Advanced Care plannin - 30 Minutes Additional Plan 54-year-old female with history of diabetes, fibromyalgia presented to the ED after having a syncopal episode earlier today. Syncope (vasovagal/cardiac/neurogenic/orthostatic/med induced) Vitals: Stable, EKG: No acute ST/T-wave changes noted Troponins within normal limits Electrolytes within normal limits Orthostatic vitals ordered, follow up with results. Telemetry monitoring CXR pulmonary vascular congestion CT head: No acute territorial infarct or intracranial hemorrhage noted. Echo ordered, follow up with results Ordered vascular ultrasound carotids and MRI head who Fluid resuscitation normal saline at 100 mL/hour Follow up with UA and UTox History of fibromyalgia Borderline diabetes, follow up with A1c Awaiting med rec Code Status: Full code DVT prophylaxis: Heparin Analgesia/sedation: None Line/tube: PIV GI prophylaxis: None Nutrition: Carb controlled Prognosis: Guarded Disposition: Continue medical management. Geni Calix MD. IM Resident PGY-3 I agree with the assessment and plan by the resident as documented above with no changes and discussed the case with them. Candice Capone MD Critical Care Date of Service: Nov 13, 2024 Billing Provider: CANDICE CAPONE MD, ELIZABETH, RES Nov 13, 2024 00:25 CANDICE CAPONE MD Nov 13, 2024 03:55
[2024-11-13] MEDS: HYDROcodone/acetaminophen 5mg/325mg tablet PO PRN (02:05)
[2024-11-13 07:21] LABS: MEAN PLATELET VOLUME 7.7 FL (7.4-10.4); RED CELL DISTRIBUTION WIDTH 18.3 % (11.5-14.5)
[2024-11-13 08:03] LABS: CHOL/HDL RATIO 4.3 (0.00-4.99); CREATININE 0.75 MG/DL (0.40-0.90); LDL CHOLESTEROL 103 MG/DL (50-100); PHOSPHORUS 4.2 MG/DL (2.3-4.5); TOTAL CARBON DIOXIDE 24.9 MMOL/L (24-32); eCRCL 80 ML/MIN; eGFR 81 ML/MIN
[2024-11-13 08:13] LABS: INR 1.0 INR
[2024-11-13] MEDS: nicotine 14mg patch - 24hr TD SCH (08:19)
[2024-11-13] MEDS: K and/or MAG REPLACEMENT MC SCH (08:23)
[2024-11-13] MEDS: heparin, porcine 5000 units/ml vial SQ SCH (08:24)
[2024-11-13] MEDS ORDERED: LORA-269 PO (13:56)
--- NOTE | 2024-11-13 16:25 | PROGRESS NOTE- Residence ---
Progress Note - Resident Providers to CC Resident Creating Document: ARTHUR PASTOR RES ~ Antibiotic Timeout Antibiotic Ordered?: No Subjective Patient seen and examined at bedside. Patient still feeling mild headache and dizziness but did not have any syncope episode since admission. She denies nausea, vomiting, loss of motor or sensitive function. Patient also denies palpitation, shortness of breath or other symptoms. No overnight events reported Objective Vital Signs Date Time Temp Pulse Resp B/P (MAP) Pulse Ox O2 Delivery O2 Flow Rate FiO2 11/13/24 11:53 92 16 Nasal Cannula 2.0 11/13/24 11:46 92 28 11/13/24 07:00 97.6 122/84 (97) Result Diagram: 11/13/24 0609 11/13/24 0609 General: Awake and Alert, no acute distress. On 2 L oxygen nasal cannula. HEENT: Approximately 8 cm laceration on the frontal side with sameer intact, no active bleeding noted. Conjunctiva pink, Sclera clear, Mucus Membranes moist. Neck: Cervical tenderness present, no masses noted. Resp: Unlabored. Equal breath sounds bilaterally. Heart: Regular rhythm, normal S1 and S2, no rub, murmur or gallop. Abdomen: Soft and non tender no organomegaly. Normal bowel sounds x4 quadrant normoactive. No guarding or rigidity. Extremities: Back pain and tenderness. Normal ROM, no swelling, nontender. No cyanosis,clubbing or edema. ANESTHESIOLOGY TECH: No gross motor or sensory abnormalities. Coagulation Studies Laboratory Tests Test 11/13/24 07:26 Prothrombin Time 10.7 SECONDS (9.0-12.0) INR International Normalized Ratio 1.0 INR Coagulation Comments Counseling Services Smoking & Tobacco Cessation: 3-10 Minutes Assessment Assessment 54-year-old female with history of diabetes, fibromyalgia presented to the ED after having a syncopal episode. Pending MRI, echocardiogram and EEG. Plan Plan Syncope (vasovagal/cardiac/neurogenic/orthostatic/med induced) 11/12/24 Vitals: Stable, EKG: No acute ST/T-wave changes noted Troponins within normal limits Electrolytes within normal limits Orthostatic vitals ordered, follow up with results. Telemetry monitoring CXR pulmonary vascular congestion CT head: No acute territorial infarct or intracranial hemorrhage noted. Echo ordered, follow up with results Ordered vascular ultrasound carotids and MRI head Fluid resuscitation normal saline at 100 mL/hour Follow up with UA and UTox 11/13/24 Ordered EEG Pending MRI head, echocardiogram and carotid ultrasound. Med reconciliation done Amitriptyline held for now due to concern of medication induced syncope Monitor for new symptoms History of fibromyalgia Continue duloxetine Code Status: Full code DVT prophylaxis: Heparin Analgesia/sedation: None Line/tube: PIV GI prophylaxis: None Nutrition: Carb controlled Prognosis: Guarded Disposition: Continue medical management. Date of Service: Nov 13, 2024 Billing Provider: EZEQUIEL HOLT MD Common Visit Codes: 80060-[id number] INP/OBS CARE(HIGH) ARTHUR PASTOR, RES Nov 13, 2024 16:25 EZEQUIEL HOLT MD Nov 14, 2024 07:36
[2024-11-13] MEDS ORDERED: ergocalciferol (vit D2) capsule 50,000 UNITS (1,250mcg) CAPSULE PO SCH (16:30)
[2024-11-13] MEDS: TYPE IN GENERIC & BRAND NAME OF PATIENT MED STRENGTH & FORM PO SCH (16:46)
--- NOTE | 2024-11-13 16:54 | VASCULAR REPORT ---
Indication: Syncope Technique: Real-time ultrasound images of the neck vessels with gonzalez-scale, color and wave Doppler we re obtained. Comparison: None Findings: [id number] atherosclerotic plaque bilaterally. The following peak systolic velocities were recorded in cm/sec: Right internal carotid: 70 Right common carotid: 79 Right external carotid: 89 Right internal/common carotid ratio: 0.9 Left internal carotid: 76 Left common carotid: 78 Left external carotid: 68 Left internal/common carotid ratio: 1 Right vertebral artery: Patent with normal antegrade direction of flow. Left vertebral artery: Patent with normal antegrade direction of flow. Impression: No hemodynamically significant stenosis by velocity criteria.
[2024-11-13] MEDS: HYDROcodone/acetaminophen 10/325mg tab PO ONE (19:46)
[2024-11-13] MEDS: duloxetine 30mg CAPSULE.DR PO SCH (22:36)
[2024-11-14] VITALS (10 sets, daily range): BP systolic 92–146; BP diastolic 61–100; PULSE 90–112; RESP 11–18; TEMP 97.1–98.5; O2SAT 90–98
--- NOTE | 2024-11-14 01:33 | RADIOLOGY REPORT ---
[facility] EXAM[facility]: MR MRI HEAD INDICATION: syncope COMPARISON: CT CT HEAD on DOS: 11/12/24, CT CT HEAD on DOS: 11/09/23 TECHNIQUE: Multiplanar, multisequence magnetic resonance imaging of the brain was performed without the use of i ntravenous contrast. FINDINGS: No evidence of acute or remote infarct. No intracranial hemorrhage. No mass effect. Minimal periventricular/deep white matter T2/FLAIR hyperintensity is nonspecific, but most commonly a ssociated with chronic microvascular disease. The ventricles and sulci are normal in size for age. Clear basal cisterns. Flow voids in the major intracranial vessels are maintained. No evidence of mesial temporal sclerosis . No abnormality of the orbits. Paranasal sinuses and mastoid air cells are clear. No abnormality of the visualized osseous structures and extracranial soft tissues. IMPRESSION: 1. No acute infarct, intracranial hemorrhage, or mass effect.
--- NOTE | 2024-11-14 05:58 | PROCEDURE NOTE ---
Procedure Note Providers to CC ~ Interpretation: [place] EEG Note: Paged for study read, however, no study uploaded for review as of 11/14/24. Please repage if uploaded and available for review and will addend note. DAVID ROSEN MD Nov 14, 2024 05:58
[2024-11-14 06:20] LABS: MEAN PLATELET VOLUME 7.7 FL (7.4-10.4); RED CELL DISTRIBUTION WIDTH 17.7 % (11.5-14.5)
[2024-11-14 06:34] LABS: CREATININE 0.77 MG/DL (0.40-0.90); PHOSPHORUS 4.6 MG/DL (2.3-4.5); TOTAL CARBON DIOXIDE 27.1 MMOL/L (24-32); eCRCL 78 ML/MIN; eGFR 78 ML/MIN
--- NOTE | 2024-11-14 10:29 | PROCEDURE NOTE ---
Procedure Note Providers to CC ~ Interpretation: [place] EEG Note # Demographics Type of EEG Read: - Routine EEG - video Patient Location: Inpatient First Name: RHONDA Last Name: ZHAO Date of : 1970 Age: 54 Gender: Female Facility: [facility] # EEG Interpretation Start Time of EEG Read (): 11/13/2024 14:07 Stop Time of EEG Read (): 11/13/2024 14:28 Duration: 0h 21m Technical Details: - The EEG electrodes were placed using the standard International 10-20 system of electrode placement. Video and an accessory EKG lead were used during the course of this study. - This study was recorded using the Tap [employer]n Tap EEG software - This study was recorded using the [employer] EEG software Indication: - altered mental status # Description Photic Stimulation: Performed Hyperventilation: performed Phases Captured: - awake - drowsy Symmetry: symmetric Posterior Dominant Rhythm: - absent 7Hz Predominant Frequencies: - delta (2-3 Hz) - continuous (>90%) Amplitude: normal Reactivity: yes Variability: yes Continuity: continuous EKG: artifactual # Abnormalities Stimulation: - photic stimulation does NOT cause abnormalities - hyperventilation does NOT cause abnormalities Epileptiform Abnormalities: - NOT present Focal Slowing: no Seizure: - NOT present # Impression Impression: abnormal Mild Diffuse Slowing # Clinical Correlation Clinical Correlation: Diffuse slowing is non-specific and may be seen in the setting of diffuse cerebral dysfunction; such as toxic/metabolic/infectious encephalopathy or heavily sedating medication use. # Logistics Telemedicine: remote EEG review: EEG reviewed remotely # Demographics First Name: RHNODA Last Name: ZHAO Facility: [facility] DAVID ROSEN MD Nov 14, 2024 10:29
--- NOTE | 2024-11-14 13:53 | [facility] CONSULT REPORT ---
[facility] Procedure Note [facility] Procedure Note Consult [facility] Note # Demographics Consult Type: General Neurology Patient Location: Inpatient First Name: Elva Last Name: Chelsea Date of : 1970 Age: 54 Gender: Female Facility: [facility] Time of Initial Page (): 11/14/2024 12:14 Time of Return Call (): 11/14/2024 12:25 # HPI History: 54y F with hx fibromyalgia presenting with episodes of shaking and feeling her head is spinning. She has the feeling of her head spinning for several seconds before resolution. She has small shaking in her extremities that other people around her don't notice but she feels. She has not had any episodes of LOC associated with this. Had EEG and MRI both of which had no acute findings # Exam Time of Exam (): 11/14/2024 13:00 Mental Status: - awake - alert and oriented x 3 - follows commands Language: - normal speech - no aphasia - no dysarthria Cranial Nerves: - no facial droop - normal facial sensation Motor: - no drift Sensory: - normal sensation # Data Time Head CT personally read by me (): 11/14/2024 13:[address]: - per radiologist read MRI: - no acute ischemia - per radiologist read Other Imaging: - EEG - diffuse slowing # Assessment Impression: Episodes of subjective shaking and dizziness with no associated LOC: psychosomatic disorder, seizure unlikely given negative MRI and EEG and whole body symptoms with no LOC # Plan Other: - If patient has any neurological deterioration please call me back immediately - seizure precautions - neurology referral as outpatient - I have discussed my recommendations with the referring provider - Orthostatic vitals # Logistics Attestation of consult completion: The patient is located at: [facility]. Facility staff participated in the visit. I performed this telemedicine visit from my offsite office utilizing interactive 2 way audio and visual telecommunication technology. Consent: Verbal consent was obtained from the patient and/or family for this encounter. Total time spent in telemedicine encounter: I spent 18 minutes reviewing clinical data and/or imaging, obtaining history, examining the patient, commun icating with the onsite care team, and in preparation of this report. # Demographics First Name: Elva Last Name: Chelsea Facility: [facility] Electronically signed at 11/14/2024 13:51 ([place] Time) by Jojo Pacheco DO Neuro Consult Order placed for: Yes JOJO PACHECO DO Nov 14, 2024 13:53
--- NOTE | 2024-11-14 17:44 | CARDIOLOGY REPORT ---
APPROVED REPORT EXAM: Comprehensive 2D, Doppler, and color-flow Echocardiogram. 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 152.0 cm/s AoV VTI 26.2 cm AO Peak GR. 9.2 mmHg AO Mean GR. 5 mmHg LVOT VTI 19.94 cm LVOT Peak Jed. 100.4 cm/s JEFFY(VTI)/BSA 2.49 cm2/m2 JEFFY (VTI) 2.49 cm2 Mitral Valve MV Peak Gr. 2 mmHg MV A Velocity 97.1 cm/s MV PHT 42 ms MVA (PHT) 5.24 cm2 MV VMax67.5 cm/s TDI Medial E' P. V 7.70 cm/s Tricuspid Valve TR P. Velocity 247 cm/s RAP ESTIMATE 10 mmHg TR Peak Gr. 24 mmHg RVSP 34 mmHg Pulmonary Vein S1 Velocity 58.4 cm/s D2 Velocity 36.8 cm/s PVa Obpjfvlf83.4 cm/s PVa [id number] msec LEFT VENTRICLE Normal LV size and function. Mild concentric hypertrophy. Overall LVEF is 60%. RIGHT VENTRICLE RV is normal size and function. RVSP is estimated at 34 mmHG. ATRIA The left atrium size is normal. AORTIC VALVE Trileaflet AV appears sclerotic without stenosis. No insufficiency. MITRAL VALVE MV is thickened with no annular calcification or stenosis. Trace mitral regurgitation. TRICUSPID VALVE The tricuspid valve is normal in structure. Trace tricuspid regurgitation. PULMONIC VALVE The pulmonary valve is normal in structure. Trace pulmonic regurgitation. GREAT VESSELS The aortic root is normal in size. The ascending aorta is normal in size. IVC is not well visualized. PERICARDIUM There is no pericardial effusion. Other Information Study Quality: Adequate Conclusion Overall LVEF is 60%. Normal LV size and function. Mild concentric hypertrophy. RV is normal size and function. RVSP is estimated at 34 mmHG. Trileaflet AV appears sclerotic without stenosis. No insufficiency. Trace mitral regurgitation. Trace tricuspid regurgitation. Trace pulmonic regurgitation. There is no pericardial effusion.
--- NOTE | 2024-11-14 18:19 | PROGRESS NOTE- Residence ---
Progress Note - Resident Providers to CC Resident Creating Document: ARTHUR PASTOR RES ~ Antibiotic Timeout Antibiotic Ordered?: No Subjective Patient seen and examined at bedside. Patient still complaining of mild headache and dizziness but did not have any syncope episode since admission. She also states feeling body aches and muscle weakness, associated with nonspecific pruritus, not associated skin changes. She denies nausea, vomiting, loss of motor or sensitive function. Patient also denies palpitation, shortness of breath or other symptoms. No overnight events reported. Objective Vital Signs Date Time Temp Pulse Resp B/P (MAP) Pulse Ox O2 Delivery O2 Flow Rate FiO2 11/14/24 15:00 97.2 101 17 144/100 (115) 93 Nasal Cannula 1.0 11/13/24 19:20 28 Result Diagram: 11/14/2452711/14/24527 General: Awake and Alert, no acute distress. On 2 L oxygen nasal cannula. HEENT: Approximately 8 cm laceration on the frontal side with sameer intact, no active bleeding noted. Conjunctiva pink, Sclera clear, Mucus Membranes moist. Neck: Cervical tenderness present, no masses noted. Resp: Unlabored. Equal breath sounds bilaterally. Heart: Regular rhythm, normal S1 and S2, no rub, murmur or gallop. Abdomen: Soft and non tender no organomegaly. Normal bowel sounds x4 quadrant normoactive. No guarding or rigidity. Extremities: Back pain and tenderness. Normal ROM, no swelling, nontender. No cyanosis,clubbing or edema. 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 No ataxia. Coagulation Studies Laboratory Tests Test 11/13/24 07:26 Prothrombin Time 10.7 SECONDS (9.0-12.0) INR International Normalized Ratio 1.0 INR Coagulation Comments Assessment Assessment 54-year-old female with history of diabetes, fibromyalgia presented to the ED after having a syncopal episode. Symptoms are not typical of seizures and full workup with EKG, telemetry, echocardiogram, head CT, head MRI, carotid ultrasound, was unrevealing. The patient was evaluated by a neurologist and was given a diagnosis of psychosomatic disorder. Plan Plan Syncope most likely secondary to psychosomatic disorder 11/12/24 Vitals: Stable, EKG: No acute ST/T-wave changes noted Troponins within normal limits Electrolytes within normal limits Orthostatic vitals ordered, follow up with results. Telemetry monitoring CXR pulmonary vascular congestion CT head: No acute territorial infarct or intracranial hemorrhage noted. Echo ordered, follow up with results Ordered vascular ultrasound carotids and MRI head Fluid resuscitation normal saline at 100 mL/hour Follow up with UA and UTox 11/13/24 Ordered EEG Pending MRI head, echocardiogram and carotid ultrasound. Med reconciliation done Amitriptyline held for now due to concern of medication induced syncope Monitor for new symptoms 11/14/24 Full syncope workup negative Ordered CPK: 22 Neurologist consulted: Diagnosis of psychosomatic disorder Monitor for new symptoms History of fibromyalgia Continue duloxetine Code Status: Full code DVT prophylaxis: Heparin Analgesia/sedation: None Line/tube: PIV GI prophylaxis: None Nutrition: Carb controlled Prognosis: Guarded Disposition: Monitor for new symptoms. Possible discharge tomorrow if clinically stable. Date of Service: Nov 14, 2024 Billing Provider: EZEQUIEL HOLT MD Common Visit Codes: 40765-[id number] INP/OBS CARE(HIGH) ARTHUR PASTOR, RES Nov 14, 2024 18:19 EZEQUIEL HOLT MD Nov 14, 2024 20:41
[2024-11-15 02:00] VITALS: BP 151/100; PULSE 90; RESP 16; TEMP 98.4; O2SAT 96
[2024-11-15 06:00] VITALS: BP 134/96; PULSE 89; RESP 16; TEMP 98; O2SAT 93
[2024-11-15 07:06] LABS: MEAN PLATELET VOLUME 7.7 FL (7.4-10.4); RED CELL DISTRIBUTION WIDTH 17.9 % (11.5-14.5)
[2024-11-15 07:24] LABS: CREATININE 0.81 MG/DL (0.40-0.90); PHOSPHORUS 4.6 MG/DL (2.3-4.5); TOTAL CARBON DIOXIDE 25.0 MMOL/L (24-32); eCRCL 74 ML/MIN; eGFR 74 ML/MIN
[2024-11-15 08:00] VITALS: BP_SYST 117; BP_SYST 122; BP_DIAS 77; PULSE 103; PULSE 106; RESP 16; O2SAT 93
[2024-11-15 09:14] VITALS: PULSE 95; RESP 18; O2SAT 95
[2024-11-15 09:23] VITALS: PULSE 87; RESP 16
[2024-11-15] MEDS ORDERED: HYDR-3965 PO (09:53)
[2024-11-15 11:00] VITALS: BP 122/77; PULSE 99; RESP 19; TEMP 97.9; O2SAT 93
--- NOTE | 2024-11-15 15:58 | DISCHARGE SUMMARY-Residence ---
Discharge Summary Providers to CC Resident Creating Document: JARRET MARCUS, DEBORA ~ Discharge Summary Admission Diagnosis: SYNCOPE Hospital Course DATE OF ADMISSION: November 12, 2024 DATE OF DISCHARGE: November 15, 2024 Discharge Diagnosis\Comment: Syncope, likely secondary to psychosomatic disorder History of fibromyalgia Operations\Procedures: None Consultants: [facility] Complications: None Condition on DC: Stable New Medications: Hydrocodone Bit/Acetaminophen 5/325 MG ([place] 5/325 MG) 5 Mg/325 Mg Tablet 1 TAB PO Q6H PRN for pain, #14 TAB Continued Medications: Amitriptyline HCl (Amitriptyline HCl) 100 Mg Tablet 1 TAB PO HS Amitriptyline Hcl* (Elavil*) 50 Mg Tablet 1 TAB PO HS Clindamycin HCl (Clindamycin HCl) 300 Mg Capsule 1 CAP PO Q8H pt started on Monday 11/06 for tooth infection Cyclobenzaprine* (Cyclobenzaprine*) 10 Mg Tablet 1 TAB PO TID PRN for muscle spasms Docusate Sodium (Docusate Sodium) 100 Mg Capsule 1 CAP PO TID PRN for constipation Duloxetine HCl (Duloxetine HCl) 60 Mg Capsule. 1 CAP PO HS Ergocalciferol (Vitamin D2) (Vitamin D2) 1,250 Mcg (19114 Unit) Capsule 1 CAP PO Q7D pt stated she takes every Monday, last taken 11/06 Ibuprofen (Ibuprofen) 800 Mg Tablet 1 TAB PO TID PRN for pain Lorazepam (Ativan) 1 Mg Tablet 1 TAB PO Q12H PRN PRN for anxiety, #20 TAB 0 Refills Semaglutide (Wegovy) 1 Mg/0.5 Ml Pen.injctr 1 MG SQ Q7D Discharge Summary: This patient is a 57-year-old female, with a history of diabetes and fibromyalgia who presented to the ER after a syncopal episode. She reports sudden loss of consciousness without preceding chest pain, palpitation, shortness of breath, or focal neurological symptoms. There was no associated seizure activity or incontinence. Vital signs were stable on arrival, and physical exam was unremarkable. Extensive workup performed, including EKGs, continuous telemetry monitoring, EEG, echocardiogram, head CT, head MRI, and carotid Doppler ultrasound; all of which were unrevealing for an underlying structure, cardiac, or neurologic etiology. Blood glucose and electrolytes were within normal limits. The patient was evaluated by Neurology, who found no evidence of seizure or structural brain pathology and suggested that the episode might be functional in nature. Outpatient psychiatry follow up was recommended for suspected psychosomatic or conversion disorder. The patient remained hemodynamically stable during hospitalization without further syncopal episodes and was discharged home in stable conditions with instruction to follow up with her primary care physician and outpatient psychiatry. Discharge medications: See above Discharge physical exam: Vital Signs Date Time Temp Pulse Resp B/P (MAP) Pulse Ox O2 Delivery O2 Flow Rate FiO2 11/15/24 11:00 97.9 99 19 122/77 (92) 93 Room Air 11/15/24 09:23 2.0 11/15/24 09:14 28 General: Awake and Alert, no acute distress. HEENT: Conjunctiva pink, Sclera clear, Mucus Membranes moist. Neck: Supple without masses and tenderness. Resp: Unlabored. Lungs clear to auscultation bilaterally. Heart: Regular Rate and rhythm, normal S1 and S2 without murmur, rub or gallop. Abdomen: Soft and non tender no organomegaly Extremities: No cyanosis,clubbing or edema. Skin: Warm and Dry. *Problems/Diagnosis: (1) Syncope Status: Acute Total Time Spent on D/C: Up to 30 Minutes Date of Service: Nov 15, 2024 Billing Provider: EZEQUIEL HOLT MD Common Visit Codes: 28846-HVV/OBS DISCH DAY >30min JARRET MARCUS, RES Nov 15, 2024 15:58 EZEQUIEL HOLT MD Nov 15, 2024 19:45
== END 2024-11-15 13:12 | disposition home health service (06) | DRG 755 ==
LOC: ER 18:34 → ED HOLD 21:53 → PCU 3S 11-13 00:53
PROVIDERS: ADMIT Internal Medicine Pulmonary Disease; ATTEND Internal Medicine
PROC: 4A00X4Z Measurement of Central Nervous Electrical Activity, External Approach (ICD-10-PCS; principal; 2024-11-14)
DX: F45.9 Somatoform disorder, unspecified (principal); E11.9 Type 2 diabetes mellitus without complications; M79.7 Fibromyalgia; F17.210 Nicotine dependence, cigarettes, uncomplicated; Z88.0 Allergy status to penicillin; Z90.710 Acquired absence of both cervix and uterus
CPT/HCPCS: 36415; 70450; 70551; 71045; 72125; 80048; 80053; 80061; 82550; 82948; 83036; 83735; 83880; 84100; 84484; 85025; 85610; 87081; 93005; 93306; 93880; 94640; 94760; 95816; 96361; 96374; 96375; 97116; 97162; 97530; 99285; A6449; G0378; J1644; J2270; J2405; J3010; J7030; Q0163